=== PATIENT | female | born 1930 | race Caucasian/White ===

== ENCOUNTER 2017-07-02 22:16 | Emergency (ER) | payer MEDICARE, OTHER | END 2017-07-02 22:53 | disposition home or self-care (01) | LOC: SCSER 22:16 | DX: L25.9 Unspecified contact dermatitis, unspecified cause (principal); I10 Essential (primary) hypertension; F41.9 Anxiety disorder, unspecified; F32.9 Major depressive disorder, single episode, unspecified; Z85.3 Personal history of malignant neoplasm of breast; Z85.828 Personal history of other malignant neoplasm of skin; Z79.82 Long term (current) use of aspirin; Z79.899 Other long term (current) drug therapy | CPT/HCPCS: 99283 ==

== ENCOUNTER 2019-04-26 12:39 | Outpatient (CLI) | payer MEDICARE, OTHER ==
--- NOTE | 2019-04-26 13:06 | CT ---
Exam: Head CT without contrast HISTORY: Previous fall and previous subdural hemorrhage. COMPARISON: none FINDINGS: Hemorrhage: Mixed attenuation extra-axial hematoma along the left frontal convex city. Hematoma measu res 1.3 cm. Configuration there is epidural, rather than a subdural hematoma. Mass effect and effacement of the left frontal sulci. No significant midline shift. Brain parenchyma: Cortical sousa-white matter differentiation is preserved. White matter hypodensities due to chronic small vessel ischemic change. There is a hyperdensity along the medial aspect of the left cerebellar hemisphere measuring 0.9 x 0.6 cm, favoring a intraparenchymal hematoma Ventricular system: Ventricles and sulci are patent and symmetric. Calvarium: Intact. Sinuses and mastoid air cells: Adequate aeration. IMPRESSION: 1. Mixed attenuation left frontal extra-axial collection, compatible with a epidural hematoma. 2. Hemorrhagic focus in the medial aspect of the left cerebellar hemisphere. Results of study discussed with Dr. Qamar Stevens 04/26/2019 at 1259 p.m.
== END 2019-04-26 12:40 | disposition home or self-care (01) ==
LOC: TBSIIMAG 12:39
PROVIDERS: ATTEND Surgery
DX: S06.6X9A Traumatic subarachnoid hemorrhage with loss of consciousness of unspecified duration, initial encounter (principal); S06.5X9A Traumatic subdural hemorrhage with loss of consciousness of unspecified duration, initial encounter; R90.89 Other abnormal findings on diagnostic imaging of central nervous system
CPT/HCPCS: 70450

== ENCOUNTER 2019-05-26 10:21 | Outpatient (CLI) | payer MEDICARE, OTHER ==
--- NOTE | 2019-05-26 11:01 | CT ---
CT BRAIN NONCONTRAST: DATE: 05/26/19 HISTORY: 88-year-old female follow-up chronic subdural hematoma. COMPARISON: 04/26/19. FINDINGS: The previously demonstrated mixed density (high and low density) left frontal extra-axial hematoma barrios s become smaller. It was previously approximately 1.3 cm in short axis thickness. It is currently [place] roximately 0.5 cm in thickness. It has less mass effect upon the left frontal lobe now than previousl y. It is now of intermittent density. Other than minimal displacement of left frontal gyri, there is no other area of mass effect. No midline shift or extra-axial fluid collection. No new hemorrhage. No acute calvarial fracture. There are high grade chronic ischemic white matter changes of the cerebrum . No obstructive hydrocephalus. IMPRESSION: Interval decrease in size of the left frontal nonacute extraaxial (possibly epidural) hematoma. RAGHU Solo POS: [facility]
== END 2019-05-26 10:22 | disposition home or self-care (01) ==
LOC: TBSIIMAG 10:21
PROVIDERS: ATTEND Surgery
DX: I62.03 Nontraumatic chronic subdural hemorrhage (principal)
CPT/HCPCS: 70450